=== PATIENT | female | born 1945 | race Caucasian/White ===

== ENCOUNTER 2018-04-24 00:07 | Inpatient (IN) | payer OTHER, MEDICAID ==
[~2018-04-24] VITALS: Ht 149.9 cm; Wt 76.8 kg
[2018-04-24 01:08] LABS: Basophils # (auto) 0.1 uL; Basophils % (auto) 0.7 % (0.0-2.0); Eosinophils # (auto) 0 uL; Eosinophils % (auto) 0.1 % (0.0-7.0); Hematocrit 40.4 % (36.0-46.0); Hemoglobin 12.4 g/dL (12.2-16.2); Lymphocytes # (auto) 2.5 uL; Lymphocytes % (auto) 18.2 % (10.0-50.0); Mean Corpuscular Hemoglobin 24.1 pg (28.0-32.0); Mean Corpuscular Hgb Conc. 30.7 g/dL (32.0-36.0); Mean Corpuscular Volume 78.5 fL (80.0-100.0); Monocytes # (auto) 0.8 uL; Neutrophils # (auto) 10.2 uL; Nucleated Red Blood Cells % 0.1 %; Platelet Count (auto) 410 10^3/uL (140-450); Red Blood Cells 5.14 10^6/uL (4.0-5.20); Red Cell Distribution Width 18.1 % (11.8-14.3); White Blood Cell 13.6 10^3/uL (4.4-10.8)
[2018-04-24 01:24] LABS: INR 1.02 (0.9-1.15); Partial Thromboplastin Time 26.1 sec (23.78-33.04); Prothrombin Time 10.9 sec (9.27-12.13)
[2018-04-24 01:25] LABS: Albumin 3.1 g/dL (3.4-5.0); Calcium 8.3 mg/dL (8.5-10.1); Potassium 4.4 mmol/L (3.5-5.1)
[2018-04-24 01:30] LABS: Bilirubin, Total 0.5 mg/dL (0.2-1.0); Total Protein 7.3 g/dL (6.4-8.2)
[2018-04-24] MEDS ORDERED: ONDANSETRON HCL 4 MG/2 ML VIAL ONE (03:52)
[2018-04-24 03:53] LABS: Urine Bacteria MOD /hpf (None Seen); Urine Blood Negative /uL (Negative); Urine Specific Gravity 1.032 (1.001-1.035); Urine WBC 37 /hpf (0 - 5)
[2018-04-24] MEDS ORDERED: ENOXAPARIN SOD 80 MG/0.8ML SYRINGE SC ONE (04:30)
[2018-04-24] MEDS ORDERED: FUROSEMIDE 20 MG/2 ML VIAL IV ONE (05:30)
[2018-04-24] MEDS ORDERED: cefTRIAXone 1GM/10ml IVPUSH 10 ML IV ONE ×2 (05:45→11:45)
[2018-04-24] MEDS ORDERED: ONDANSETRON HCL 4 MG/2 ML VIAL IV PRN (06:00)
[2018-04-24] MEDS ORDERED: HYDROcodone-ACET 5/325MG TAB PO PRN (06:00)
[2018-04-24] MEDS ORDERED: MORPHINE SULF INJ 2 MG/ML SYRINGE 1ML IV PRN (06:00)
[2018-04-24] MEDS ORDERED: ACETAMINOPHEN 325 MG TAB PO PRN (06:00)
[2018-04-24] MEDS ORDERED: TEMAZEPAM 15 MG CAP PO PRN (06:00)
[2018-04-24] MEDS ORDERED: NITROGLYCERIN 0.4 MG SL TAB SL PRN (06:00)
[2018-04-24] MEDS ORDERED: IOHEXOL 350 MG/ML 100ML IJ ONE (06:13)
[2018-04-24] MEDS ORDERED: LOPERAMIDE HCL 2 MG CAP PO PRN (06:45)
[2018-04-24] MEDS ORDERED: LEVOFLOXACIN 500MG 100 ML IV ONE (07:30)
[2018-04-24] MEDS ORDERED: LEVEMIR SC (08:24)
[2018-04-24] MEDS ORDERED: BIMA0.01 EACHEYE (08:24)
[2018-04-24] MEDS ORDERED: SITA100T7 PO (08:24)
[2018-04-24] MEDS ORDERED: METF-372 PO (08:24)
[2018-04-24] MEDS ORDERED: LOSA100T27 PO (08:24)
[2018-04-24] MEDS ORDERED: MELO1TAB73 PO (08:24)
[2018-04-24] MEDS ORDERED: CANA300T OR (08:24)
[2018-04-24] MEDS ORDERED: PEN400T PO (08:24)
[2018-04-24] MEDS ORDERED: TIMO0.5S49 EACHEYE (08:24)
[2018-04-24] MEDS ORDERED: ASPirin 81 mg TAB PO SCH (10:00)
[2018-04-24] MEDS ORDERED: FAMOTIDINE 20 MG TAB PO SCH (10:00)
[2018-04-24] MEDS: FUROSEMIDE 20 MG/2 ML VIAL IV SCH ×2 (10:40→17:52)
[2018-04-24] MEDS: FAMOTIDINE 20 MG TAB PO SCH (10:57)
[2018-04-24] MEDS ORDERED: DEXTROSE (50%) 50ML SYRG IV PRN (11:45)
[2018-04-24] MEDS: metroNIDAZOLE 500 MG TAB PO SCH ×2 (12:24→17:51)
[2018-04-24] MEDS: InsuLIN REG 1unit/0.01ml Soln (100units/ml) SC SCH ×2 (17:00→22:24)
[2018-04-24] MEDS: ACCU-CHEK COMFORT CURVE STRIP VI SCH ×2 (17:08→22:26)
[2018-04-24 17:34] VITALS: BP 155/64
[2018-04-24 21:30] VITALS: BP 138/70
[2018-04-24] MEDS: CARVEDILOL 3.125 MG TAB PO SCH (22:00)
[2018-04-24] MEDS: ATORVASTATIN 20 MG TAB PO SCH (22:20)
[2018-04-24] MEDS: ENOXAPARIN SOD 100 MG/1 ML SYRINGE SC SCH (22:25)
[2018-04-24] MEDS: INSULIN LANTUS (GLARGINE) 1 /0.01ml (100units/ml) SC SCH (22:26)
[2018-04-25 05:00] VITALS: BP 92/51
[2018-04-25] MEDS: metroNIDAZOLE 500 MG TAB PO SCH ×4 (06:34→18:35)
[2018-04-25] MEDS: InsuLIN REG 1unit/0.01ml Soln (100units/ml) SC SCH ×4 (06:41→21:54)
[2018-04-25] MEDS: FUROSEMIDE 20 MG/2 ML VIAL IV SCH ×2 (06:58→18:36)
[2018-04-25] MEDS: ACCU-CHEK COMFORT CURVE STRIP VI SCH ×4 (07:00→21:56)
[2018-04-25 07:28] LABS: Albumin 2.8 g/dL (3.4-5.0); BUN/Creatinine Ratio 22.7; Bilirubin, Total 0.4 mg/dL (0.2-1.0); Calcium 8.1 mg/dL (8.5-10.1); Magnesium 2.2 mg/dL (1.6-2.6); Potassium 3.7 mmol/L (3.5-5.1); Total Protein 6.5 g/dL (6.4-8.2)
[2018-04-25 07:41] LABS: Basophils # (auto) 0.1 uL; Eosinophils # (auto) 0.1 uL; Red Cell Distribution Width 17.9 % (11.8-14.3); White Blood Cell 12.6 10^3/uL (4.4-10.8)
[2018-04-25 07:43] LABS: Basophils % (auto) 0.7 % (0.0-2.0); Eosinophils % (auto) 0.5 % (0.0-7.0); Hematocrit 35.8 % (36.0-46.0); Lymphocytes # (auto) 3.8 uL; Lymphocytes % (auto) 29.9 % (10.0-50.0); Mean Corpuscular Hemoglobin 24.1 pg (28.0-32.0); Mean Corpuscular Hgb Conc. 30.9 g/dL (32.0-36.0); Mean Corpuscular Volume 78.1 fL (80.0-100.0); Monocytes % (auto) 7.9 % (0.0-12.0); Neutrophils # (auto) 7.7 uL; Nucleated Red Blood Cells % 0.2 %; Platelet Count (auto) 347 10^3/uL (140-450); Red Blood Cells 4.58 10^6/uL (4.0-5.20)
[2018-04-25 09:00] VITALS: BP 106/56
[2018-04-25] MEDS: cefTRIAXone 1GM/10ml IVPUSH 10 ML IV SCH (09:00)
[2018-04-25] MEDS: ENOXAPARIN SOD 100 MG/1 ML SYRINGE SC SCH ×2 (10:00→21:53)
[2018-04-25] MEDS ORDERED: LEVOFLOXACIN 500MG 100 ML IV SCH (10:00)
[2018-04-25] MEDS: ASPirin 81 mg TAB PO SCH (10:00)
[2018-04-25] MEDS: FAMOTIDINE 20 MG TAB PO SCH (10:26)
[2018-04-25] MEDS: CARVEDILOL 3.125 MG TAB PO SCH ×2 (10:27→21:53)
[2018-04-25 13:00] VITALS: BP 93/49
[2018-04-25 16:47] VITALS: BP 95/55
[2018-04-25] MEDS: ATORVASTATIN 20 MG TAB PO SCH ×2 (21:53→21:58)
[2018-04-25] MEDS: INSULIN LANTUS (GLARGINE) 1 /0.01ml (100units/ml) SC SCH (21:55)
[2018-04-25 22:00] VITALS: BP 112/64
[2018-04-26] MEDS: metroNIDAZOLE 500 MG TAB PO SCH ×2 (00:01→06:22)
[2018-04-26 05:00] VITALS: BP 105/56
[2018-04-26] MEDS: FUROSEMIDE 20 MG/2 ML VIAL IV SCH ×2 (06:23→18:20)
[2018-04-26] MEDS: InsuLIN REG 1unit/0.01ml Soln (100units/ml) SC SCH ×4 (06:43→21:56)
[2018-04-26] MEDS: ACCU-CHEK COMFORT CURVE STRIP VI SCH ×4 (06:44→21:56)
[2018-04-26 07:16] LABS: Basophils # (auto) 0.1 uL; Basophils % (auto) 0.9 % (0.0-2.0); Eosinophils # (auto) 0.1 uL; Lymphocytes # (auto) 3.9 uL; Monocytes # (auto) 0.9 uL
[2018-04-26 07:19] LABS: Eosinophils % (auto) 1.2 % (0.0-7.0); Hemoglobin 10.6 g/dL (12.2-16.2); Lymphocytes % (auto) 41.3 % (10.0-50.0); Mean Corpuscular Hemoglobin 24.9 pg (28.0-32.0); Mean Corpuscular Hgb Conc. 32.3 g/dL (32.0-36.0); Mean Corpuscular Volume 77.3 fL (80.0-100.0); Neutrophils # (auto) 4.4 uL; Neutrophils % (auto) 46.6 % (37.0-80.0); Platelet Count (auto) 309 10^3/uL (140-450); Red Blood Cells 4.27 10^6/uL (4.0-5.20); Red Cell Distribution Width 17.6 % (11.8-14.3); White Blood Cell 9.3 10^3/uL (4.4-10.8)
[2018-04-26 07:23] LABS: BUN/Creatinine Ratio 28.9; Calcium 8.3 mg/dL (8.5-10.1); Potassium 3.6 mmol/L (3.5-5.1)
[2018-04-26 09:00] VITALS: BP 110/59
[2018-04-26] MEDS: cefTRIAXone 1GM/10ml IVPUSH 10 ML IV SCH (09:00)
[2018-04-26] MEDS: ASPirin 81 mg TAB PO SCH (10:30)
[2018-04-26] MEDS: ENOXAPARIN SOD 100 MG/1 ML SYRINGE SC SCH (10:30)
[2018-04-26] MEDS: FAMOTIDINE 20 MG TAB PO SCH (10:30)
[2018-04-26] MEDS: CARVEDILOL 3.125 MG TAB PO SCH ×2 (10:31→21:55)
[2018-04-26 12:43] VITALS: BP 109/56
[2018-04-26] MEDS ORDERED: LIDOCAINE 2% (LOCAL ANESTH.) PF 5ml SDV ONE ×2 (14:20→14:22)
[2018-04-26 16:30] VITALS: BP 99/49
[2018-04-26] MEDS: ATORVASTATIN 20 MG TAB PO SCH (21:47)
[2018-04-26] MEDS: INSULIN LANTUS (GLARGINE) 1 /0.01ml (100units/ml) SC SCH (21:56)
[2018-04-26 22:00] VITALS: BP 106/58
[2018-04-27 05:00] VITALS: BP 125/72
[2018-04-27] MEDS ORDERED: DEXTROSE (50%) 50ML SYRG IV ONE (05:15)
[2018-04-27 05:41] LABS: Basophils # (auto) 0.1 uL; Basophils % (auto) 0.9 % (0.0-2.0); Eosinophils # (auto) 0.1 uL; Hemoglobin 11.8 g/dL (12.2-16.2); Lymphocytes # (auto) 3.7 uL; Mean Corpuscular Hemoglobin 24.8 pg (28.0-32.0); White Blood Cell 9.9 10^3/uL (4.4-10.8)
[2018-04-27 05:42] LABS: Eosinophils % (auto) 1.3 % (0.0-7.0); Hematocrit 37.2 % (36.0-46.0); Lymphocytes % (auto) 36.9 % (10.0-50.0); Mean Corpuscular Hgb Conc. 31.7 g/dL (32.0-36.0); Mean Corpuscular Volume 78.1 fL (80.0-100.0); Monocytes % (auto) 9.7 % (0.0-12.0); Neutrophils # (auto) 5.1 uL; Neutrophils % (auto) 51.2 % (37.0-80.0); Nucleated Red Blood Cells % 0.1 %; Platelet Count (auto) 359 10^3/uL (140-450); Red Blood Cells 4.76 10^6/uL (4.0-5.20); Red Cell Distribution Width 17.7 % (11.8-14.3)
[2018-04-27] MEDS: FUROSEMIDE 20 MG/2 ML VIAL IV SCH ×2 (05:49→18:12)
[2018-04-27 06:13] LABS: BUN/Creatinine Ratio 34.4; Calcium 8.6 mg/dL (8.5-10.1); Magnesium 2.5 mg/dL (1.6-2.6); Potassium 3.9 mmol/L (3.5-5.1)
[2018-04-27] MEDS: ACCU-CHEK COMFORT CURVE STRIP VI SCH ×4 (06:49→22:14)
[2018-04-27] MEDS: InsuLIN REG 1unit/0.01ml Soln (100units/ml) SC SCH ×4 (06:49→22:13)
[2018-04-27 09:10] VITALS: BP 125/65
[2018-04-27] MEDS: POTASSIUM CHL 20 Meq TABLET PO SCH (09:42)
[2018-04-27] MEDS: FAMOTIDINE 20 MG TAB PO SCH (09:42)
[2018-04-27] MEDS: cefTRIAXone 1GM/10ml IVPUSH 10 ML IV SCH (09:42)
[2018-04-27] MEDS: ASPirin 81 mg TAB PO SCH (09:42)
[2018-04-27] MEDS: CARVEDILOL 3.125 MG TAB PO SCH ×2 (09:43→22:00)
[2018-04-27] MEDS: ENOXAPARIN SOD 40 MG/0.4 ML SYRINGE SC SCH (10:00)
[2018-04-27] MEDS: LOSARTAN POTASSIUM 50 MG TAB PO SCH (10:00)
[2018-04-27] MEDS ORDERED: LIDOCAINE 2%HCL (LOCAL ANESTH.) INJ 10ml MDV ONE ×2 (11:58→23:13)
[2018-04-27] MEDS ORDERED: IODIXANOL 320MG/ML 100ML BTL IV ONE ×2 (11:58→23:13)
[2018-04-27] MEDS ORDERED: ANGIOMAX 250 MG VIAL IV ONE ×2 (12:35→23:11)
[2018-04-27] MEDS ORDERED: fentaNYL CITRATE 100 MCG/2 ML VL ONE ×2 (12:35→23:11)
[2018-04-27] MEDS ORDERED: SODIUM CHL 0.9% 0 ML ONE ×2 (12:35→23:12)
[2018-04-27] MEDS ORDERED: MIDAZOLAM HCL 1MG/1ML-2 ML VIAL ONE ×2 (12:35→23:11)
[2018-04-27 16:56] VITALS: BP 142/75
[2018-04-27] MEDS ORDERED: INSULIN LANTUS (GLARGINE) 1 /0.01ml (100units/ml) SC SCH (22:00)
[2018-04-27] MEDS: ATORVASTATIN 20 MG TAB PO SCH (22:10)
[2018-04-27] MEDS ORDERED: ENOXAPARIN SOD 100 MG/1 ML SYRINGE SC ONE (22:32)
[2018-04-27] MEDS ORDERED: ENOXAPARIN SOD 80 MG/0.8ML SYRINGE SC ONE (22:35)
[2018-04-27] MEDS ORDERED: MEPERIDINE HCL (25 MG/ML) 1ML VIAL IV ONE (23:15)
[2018-04-27] MEDS ORDERED: DIAZEPAM 5 MG TAB PO ONE (23:15)
[2018-04-27] MEDS ORDERED: DIAZEPAM 5 MG TAB ONE (23:16)
[2018-04-27] MEDS ORDERED: EPTIFIBATIDE INJ (2MG/ML) 10ML VIAL IV ONE (23:17)
[2018-04-27] MEDS ORDERED: EPTIFIBATIDE DRIP(0.75MG/ML) 100 ML IV ONE (23:17)
[2018-04-27] MEDS ORDERED: ONDANSETRON HCL 4 MG/2 ML VIAL ONE (23:57)
[2018-04-28] VITALS (69 sets, daily range): BP systolic 83–147; BP diastolic 38–78
[2018-04-28] MEDS: EPTIFIBATIDE DRIP(0.75MG/ML) 100 ML IV SCH ×2 (01:45→06:46)
[2018-04-28] MEDS: ACCU-CHEK COMFORT CURVE STRIP VI SCH ×6 (04:00→20:00)
[2018-04-28] MEDS: InsuLIN REG 1unit/0.01ml Soln (100units/ml) SC SCH ×6 (04:00→20:00)
[2018-04-28 04:11] LABS: Basophils # (auto) 0.1 uL; Eosinophils # (auto) 0 uL; Eosinophils % (auto) 0.1 % (0.0-7.0); Monocytes # (auto) 1.1 uL
[2018-04-28 04:14] LABS: Basophils % (auto) 0.8 % (0.0-2.0); Hematocrit 38.1 % (36.0-46.0); Hemoglobin 11.7 g/dL (12.2-16.2); Lymphocytes # (auto) 2.5 uL; Mean Corpuscular Hemoglobin 24.3 pg (28.0-32.0); Mean Corpuscular Hgb Conc. 30.7 g/dL (32.0-36.0); Mean Corpuscular Volume 78.9 fL (80.0-100.0); Monocytes % (auto) 7.9 % (0.0-12.0); Neutrophils % (auto) 73.2 % (37.0-80.0); Platelet Count (auto) 339 10^3/uL (140-450); Red Blood Cells 4.82 10^6/uL (4.0-5.20); White Blood Cell 13.6 10^3/uL (4.4-10.8)
[2018-04-28 04:18] LABS: Albumin 2.9 g/dL (3.4-5.0); BUN/Creatinine Ratio 29.3; Calcium 8.2 mg/dL (8.5-10.1); Potassium 3.5 mmol/L (3.5-5.1)
[2018-04-28 04:21] LABS: Bilirubin, Total 0.4 mg/dL (0.2-1.0); Total Protein 6.9 g/dL (6.4-8.2)
[2018-04-28 04:34] LABS: INR 1.06 (0.9-1.15); Partial Thromboplastin Time 27.5 sec (23.78-33.04); Prothrombin Time 11.3 sec (9.27-12.13)
[2018-04-28] MEDS: FUROSEMIDE 20 MG/2 ML VIAL IV SCH ×2 (06:46→17:50)
[2018-04-28] MEDS ORDERED: MILRINONE 4 MG in SODIUM CHL 0.9% 50 ML IV ONE (08:45)
[2018-04-28] MEDS: MILRINONE 20MG/100ML 100 ML IV SCH ×2 (09:49→20:20)
[2018-04-28] MEDS: LOSARTAN POTASSIUM 50 MG TAB PO SCH (10:00)
[2018-04-28] MEDS: ENOXAPARIN SOD 40 MG/0.4 ML SYRINGE SC SCH (10:00)
[2018-04-28] MEDS: cefTRIAXone 1GM/10ml IVPUSH 10 ML IV SCH (10:02)
[2018-04-28] MEDS: FAMOTIDINE 20 MG TAB PO SCH (10:02)
[2018-04-28] MEDS: CARVEDILOL 3.125 MG TAB PO SCH ×2 (10:03→22:00)
[2018-04-28] MEDS: ASPirin 81 mg TAB PO SCH (10:03)
[2018-04-28] MEDS: POTASSIUM CHL 20 Meq TABLET PO SCH (10:04)
[2018-04-28] MEDS ORDERED: HYDROcodone-ACET 5/325MG TAB PO PRN (10:15)
[2018-04-28] MEDS ORDERED: DEXTROSE (50%) 50ML SYRG IV PRN ×2 (10:30)
[2018-04-28] MEDS ORDERED: CLOPIDOGREL 300 MG TAB PO ONE (14:00)
[2018-04-28] MEDS ORDERED: SIMETHICONE 80 MG CHEWABLE TABLET PO ONE (21:45)
[2018-04-28] MEDS: ATORVASTATIN 20 MG TAB PO SCH (22:25)
[2018-04-28] MEDS: INSULIN LANTUS (GLARGINE) 1 /0.01ml (100units/ml) SC SCH (22:26)
[2018-04-29] VITALS: BP 139/72
[2018-04-29] MEDS: ACCU-CHEK COMFORT CURVE STRIP VI SCH ×7 (00:19→23:48)
[2018-04-29] MEDS: InsuLIN REG 1unit/0.01ml Soln (100units/ml) SC SCH ×7 (00:19→23:48)
[2018-04-29 04:00] VITALS: BP 122/71
[2018-04-29 05:00] LABS: Basophils # (auto) 0.1 uL; Eosinophils # (auto) 0.1 uL; Eosinophils % (auto) 0.5 % (0.0-7.0); Hemoglobin 10.7 g/dL (12.2-16.2); Lymphocytes # (auto) 2.5 uL; Mean Corpuscular Hemoglobin 24.6 pg (28.0-32.0); Mean Corpuscular Hgb Conc. 31.4 g/dL (32.0-36.0); Monocytes # (auto) 0.9 uL; Monocytes % (auto) 7.1 % (0.0-12.0); Red Blood Cells 4.34 10^6/uL (4.0-5.20); Red Cell Distribution Width 17.6 % (11.8-14.3); White Blood Cell 12.5 10^3/uL (4.4-10.8)
[2018-04-29 05:02] LABS: Mean Corpuscular Volume 78.4 fL (80.0-100.0); Neutrophils # (auto) 8.9 uL; Neutrophils % (auto) 71.4 % (37.0-80.0); Platelet Count (auto) 304 10^3/uL (140-450)
[2018-04-29 05:16] LABS: BUN/Creatinine Ratio 30.3; Calcium 8.1 mg/dL (8.5-10.1); Potassium 3.8 mmol/L (3.5-5.1)
[2018-04-29] MEDS: FUROSEMIDE 20 MG/2 ML VIAL IV SCH ×2 (06:00→17:22)
[2018-04-29] MEDS: FAMOTIDINE 20 MG TAB PO SCH (06:42)
[2018-04-29] MEDS: cefTRIAXone 1GM/10ml IVPUSH 10 ML IV SCH (09:00)
[2018-04-29] MEDS ORDERED: LACTULOSE 20Gm/30ML SOLN PO PRN ×2 (09:00→10:30)
[2018-04-29] MEDS ORDERED: DOCUSATE SOD 100 MG CAP PO PRN ×2 (09:00→10:30)
[2018-04-29] MEDS: CLOPIDOGREL BISULFATE 75 MG TAB PO SCH (10:00)
[2018-04-29] MEDS: ASPirin 81 mg TAB PO SCH (10:00)
[2018-04-29] MEDS: ENOXAPARIN SOD 40 MG/0.4 ML SYRINGE SC SCH (10:00)
[2018-04-29] MEDS: CARVEDILOL 3.125 MG TAB PO SCH ×2 (10:00→21:50)
[2018-04-29] MEDS: LOSARTAN POTASSIUM 50 MG TAB PO SCH (10:00)
[2018-04-29] MEDS: POTASSIUM CHL 20 Meq TABLET PO SCH (10:00)
[2018-04-29 13:00] VITALS: BP 106/66
[2018-04-29] MEDS ORDERED: LORazepam 0.5 MG TAB PO PRN (16:15)
[2018-04-29] MEDS: LACTULOSE 20Gm/30ML SOLN PO PRN (16:36)
[2018-04-29 17:00] VITALS: BP 103/59
[2018-04-29] MEDS: ATORVASTATIN 20 MG TAB PO SCH (21:50)
[2018-04-29] MEDS: INSULIN LANTUS (GLARGINE) 1 /0.01ml (100units/ml) SC SCH (21:51)
[2018-04-29] MEDS ORDERED: DOCUSATE SOD 100 MG CAP PO SCH (22:00)
[2018-04-29 22:02] VITALS: BP 140/59
[2018-04-29] MEDS ORDERED: AMMONIA 0.33 ML INHALANT IN ONE (23:13)
[2018-04-30] MEDS: ACCU-CHEK COMFORT CURVE STRIP VI SCH ×2 (04:00→08:00)
[2018-04-30] MEDS: InsuLIN REG 1unit/0.01ml Soln (100units/ml) SC SCH ×2 (04:00→08:00)
[2018-04-30 05:25] VITALS: BP 112/57
[2018-04-30] MEDS: FUROSEMIDE 20 MG/2 ML VIAL IV SCH (05:58)
[2018-04-30 06:34] LABS: Basophils # (auto) 0.1 uL; Eosinophils # (auto) 0.1 uL; Eosinophils % (auto) 0.9 % (0.0-7.0); Hemoglobin 11.1 g/dL (12.2-16.2); Monocytes # (auto) 0.8 uL; Neutrophils # (auto) 5.7 uL
[2018-04-30 06:37] LABS: Basophils % (auto) 1.2 % (0.0-2.0); Hematocrit 35.1 % (36.0-46.0); Lymphocytes # (auto) 2.3 uL; Lymphocytes % (auto) 25.8 % (10.0-50.0); Mean Corpuscular Hgb Conc. 31.6 g/dL (32.0-36.0); Mean Corpuscular Volume 79.2 fL (80.0-100.0); Monocytes % (auto) 8.5 % (0.0-12.0); Neutrophils % (auto) 63.6 % (37.0-80.0); Nucleated Red Blood Cells % 0.1 %; Platelet Count (auto) 268 10^3/uL (140-450); Red Blood Cells 4.44 10^6/uL (4.0-5.20); Red Cell Distribution Width 18.1 % (11.8-14.3); White Blood Cell 8.9 10^3/uL (4.4-10.8)
[2018-04-30 06:54] LABS: BUN/Creatinine Ratio 27.9; Calcium 8.3 mg/dL (8.5-10.1); Magnesium 2.5 mg/dL (1.6-2.6); Potassium 3.8 mmol/L (3.5-5.1)
[2018-04-30] MEDS: LACTULOSE 20Gm/30ML SOLN PO PRN (08:46)
[2018-04-30] MEDS: cefTRIAXone 1GM/10ml IVPUSH 10 ML IV SCH (08:46)
[2018-04-30 09:00] VITALS: BP 101/52
[2018-04-30] MEDS: CLOPIDOGREL BISULFATE 75 MG TAB PO SCH (10:55)
[2018-04-30] MEDS: ENOXAPARIN SOD 40 MG/0.4 ML SYRINGE SC SCH (10:55)
[2018-04-30] MEDS: FAMOTIDINE 20 MG TAB PO SCH (10:55)
[2018-04-30] MEDS: POTASSIUM CHL 20 Meq TABLET PO SCH (10:56)
[2018-04-30] MEDS: ASPirin 81 mg TAB PO SCH (10:56)
[2018-04-30] MEDS: CARVEDILOL 3.125 MG TAB PO SCH (10:59)
[2018-04-30] MEDS: LOSARTAN POTASSIUM 50 MG TAB PO SCH (11:00)
[2018-04-30] MEDS ORDERED: ATOR20TA50 PO (11:42)
[2018-04-30] MEDS ORDERED: ASPI81CH43 PO (11:42)
[2018-04-30] MEDS ORDERED: CLOP75TA28 PO (11:42)
[2018-04-30] MEDS ORDERED: FURO40TA PO (11:42)
[2018-04-30] MEDS ORDERED: POTA20TA53 PO (11:42)
[2018-04-30] MEDS ORDERED: NITR-48 PO (11:42)
[2018-04-30] MEDS ORDERED: CAR3125T PO (11:42)
[2018-04-30] MEDS ORDERED: PANT40TA2 PO (11:42)
[2018-04-30] MEDS ORDERED: LOSA50TA6 PO (11:42)
[2018-04-30] MEDS ORDERED: DOCU-94 PO (11:47)
[2018-04-30 13:21] VITALS: BP 101/52
== END 2018-04-30 14:00 | disposition home health service (06) | DRG 270 ==
LOC: ER 00:07 → TELE 00:08 → TELE-WESTW 07:38 → ICU WEST 04-28 02:02 → DOU IN ICU 04-28 07:47 → CENTRAL 04-29 11:47 → TELE-CENTR 04-29 11:48
PROVIDERS: ADMIT Nurse Practitioner; ATTEND Internal Medicine
PROC: 0W993ZZ Drainage of Right Pleural Cavity, Percutaneous Approach (ICD-10-PCS; 2018-04-25)
PROC: 4A023N8 Measurement of Cardiac Sampling and Pressure, Bilateral, Percutaneous Approach (ICD-10-PCS; principal; 2018-04-27)
PROC: B2111ZZ Fluoroscopy of Multiple Coronary Arteries using Low Osmolar Contrast (ICD-10-PCS; 2018-04-27)
PROC: B2151ZZ Fluoroscopy of Left Heart using Low Osmolar Contrast (ICD-10-PCS; 2018-04-27)
PROC: 04CM3ZZ Extirpation of Matter from Right Popliteal Artery, Percutaneous Approach (ICD-10-PCS; 2018-04-28)
PROC: 047M3Z1 Dilation of Right Popliteal Artery using Drug-Coated Balloon, Percutaneous Approach (ICD-10-PCS; 2018-04-28)
PROC: 047K3Z1 Dilation of Right Femoral Artery using Drug-Coated Balloon, Percutaneous Approach (ICD-10-PCS; 2018-04-28)
PROC: 04CK3ZZ Extirpation of Matter from Right Femoral Artery, Percutaneous Approach (ICD-10-PCS; 2018-04-28)
PROC: B41F1ZZ Fluoroscopy of Right Lower Extremity Arteries using Low Osmolar Contrast (ICD-10-PCS; 2018-04-28)
DX: I21.4 Non-ST elevation (NSTEMI) myocardial infarction (principal); J96.00 Acute respiratory failure, unspecified whether with hypoxia or hypercapnia; I50.43 Acute on chronic combined systolic (congestive) and diastolic (congestive) heart failure; N39.0 Urinary tract infection, site not specified; I42.9 Cardiomyopathy, unspecified; I70.92 Chronic total occlusion of artery of the extremities; J98.11 Atelectasis; I74.3 Embolism and thrombosis of arteries of the lower extremities; I25.10 Atherosclerotic heart disease of native coronary artery without angina pectoris; E66.9 Obesity, unspecified; I11.0 Hypertensive heart disease with heart failure; R19.7 Diarrhea, unspecified; B96.20 Unspecified Escherichia coli [E. coli] as the cause of diseases classified elsewhere; E11.51 Type 2 diabetes mellitus with diabetic peripheral angiopathy without gangrene; E11.65 Type 2 diabetes mellitus with hyperglycemia; I70.201 Unspecified atherosclerosis of native arteries of extremities, right leg; K21.9 Gastro-esophageal reflux disease without esophagitis; K59.00 Constipation, unspecified; R79.1 Abnormal coagulation profile; Z82.49 Family history of ischemic heart disease and other diseases of the circulatory system; Z87.11 Personal history of peptic ulcer disease; Z83.3 Family history of diabetes mellitus; Z68.34 Body mass index [BMI] 34.0-34.9, adult; Z88.1 Allergy status to other antibiotic agents; Z88.0 Allergy status to penicillin
CPT/HCPCS: 10022; 36415; 37225; 71045; 71046; 71275; 76604; 76942; 80048; 80053; 80061; 81001; 82962; 83036; 83735; 83880; 83986; 84443; 84484; 85025; 85379; 85610; 85730; 86850; 86900; 86901; 87070; 87081; 87086; 87088; 87186; 87205; 87493; 89051; 93005; 93306; 93460; 93926; 93970; 94761; 96372; 96374; 96375; 97163; 99152; A6257; C1769; C2623; J0696; J1815; J1956; J2001; J2250; J2405; Q9967

== ENCOUNTER 2018-05-04 13:47 | Emergency (ER) | payer OTHER, MEDICAID ==
[~2018-05-04] VITALS: Ht 152.4 cm; Wt 75.3 kg
[~2018-05-04 13:47] MED LIST: ASPI81CH43 PO; ATOR20TA50 PO; BIMA0.01 EACHEYE; CANA300T OR; CAR3125T PO; CLOP75TA28 PO; DOCU-94 PO; FURO40TA PO; LEVEMIR SC; LOSA50TA6 PO; MELO1TAB73 PO; NITR-48 PO; PANT40TA2 PO; POTA20TA53 PO; SITA100T7 PO; TIMO0.5S49 EACHEYE
[2018-05-04 14:44] LABS: Basophils # (auto) 0.1 uL; Eosinophils # (auto) 0.1 uL; Hemoglobin 11.5 g/dL (12.2-16.2); Nucleated Red Blood Cells % 0.1 %; Red Blood Cells 4.59 10^6/uL (4.0-5.20)
[2018-05-04 14:46] LABS: Basophils % (auto) 1.2 % (0.0-2.0); Eosinophils % (auto) 1.4 % (0.0-7.0); Hematocrit 36.2 % (36.0-46.0); Lymphocytes # (auto) 1.6 uL; Lymphocytes % (auto) 15.7 % (10.0-50.0); Mean Corpuscular Hgb Conc. 31.7 g/dL (32.0-36.0); Mean Corpuscular Volume 78.8 fL (80.0-100.0); Monocytes # (auto) 0.6 uL; Monocytes % (auto) 6.1 % (0.0-12.0); Neutrophils # (auto) 7.5 uL; Neutrophils % (auto) 75.6 % (37.0-80.0); Platelet Count (auto) 304 10^3/uL (140-450); Red Cell Distribution Width 18.2 % (11.8-14.3)
[2018-05-04 15:02] LABS: INR 0.98 (0.9-1.15); Partial Thromboplastin Time 23.8 sec (23.78-33.04); Prothrombin Time 10.5 sec (9.27-12.13)
[2018-05-04 15:07] LABS: Albumin 3.3 g/dL (3.4-5.0); BUN/Creatinine Ratio 25.8; Bilirubin, Total 0.5 mg/dL (0.2-1.0); Calcium 8.7 mg/dL (8.5-10.1); Magnesium 2.8 mg/dL (1.6-2.6); Potassium 4.2 mmol/L (3.5-5.1); Total Protein 7.7 g/dL (6.4-8.2)
[2018-05-04] MEDS ORDERED: FUROSEMIDE 40 MG/4 ML VIAL IV ONE (17:15)
[2018-05-04] MEDS ORDERED: HEPARIN SODIUM (PORCINE) 5000 UNITS/ML 1ML VIAL IV ONE ×2 (17:45→18:30)
[2018-05-04] MEDS ORDERED: HEPARIN DRIP/D5W 100UNITS/ML 250 ML IV SCH (18:30)
[2018-05-04] MEDS ORDERED: diphenhdrAMINE HCL 50 MG/1 ML VL IV ONE ×2 (19:15→19:30)
[2018-05-04] MEDS ORDERED: FLUCONAZOLE 100 MG TAB PO ONE (19:30)
[2018-05-04] MEDS ORDERED: methylPREDNISolone SOD SUCC 125 MG/2 ML VL IV ONE (19:30)
[2018-05-04 19:42] VITALS: BP 137/83
== END 2018-05-04 20:29 | disposition short-term general hospital (02) ==
LOC: EDBD 13:47 → ER 13:47
DX: I77.89 Other specified disorders of arteries and arterioles (principal); I87.8 Other specified disorders of veins; D50.9 Iron deficiency anemia, unspecified; E11.21 Type 2 diabetes mellitus with diabetic nephropathy; K21.9 Gastro-esophageal reflux disease without esophagitis; I11.0 Hypertensive heart disease with heart failure; I50.9 Heart failure, unspecified; E46 Unspecified protein-calorie malnutrition; Z88.0 Allergy status to penicillin; Z79.82 Long term (current) use of aspirin; Z79.899 Other long term (current) drug therapy; Z68.32 Body mass index [BMI] 32.0-32.9, adult
CPT/HCPCS: 36415; 71046; 80053; 83735; 85025; 85379; 85610; 85730; 93005; 93926; 96374; 96375; 96376; 99285; J1200; J1644; J1940; J2930

== ENCOUNTER 2018-05-14 22:58 | Inpatient (IN) | payer OTHER, MEDICAID ==
[~2018-05-14] VITALS: Ht 157.5 cm; Wt 77.7 kg
[2018-05-15 01:11] LABS: Basophils # (auto) 0.2 uL; Basophils % (auto) 1.7 % (0.0-2.0); Eosinophils # (auto) 0.2 uL; Eosinophils % (auto) 1.9 % (0.0-7.0); Hematocrit 31.5 % (36.0-46.0); Hemoglobin 9.7 g/dL (12.2-16.2); Lymphocytes # (auto) 3.1 uL; Lymphocytes % (auto) 24.9 % (10.0-50.0); Mean Corpuscular Hemoglobin 23.9 pg (28.0-32.0); Mean Corpuscular Hgb Conc. 30.8 g/dL (32.0-36.0); Mean Corpuscular Volume 77.5 fL (80.0-100.0); Monocytes # (auto) 0.9 uL; Monocytes % (auto) 6.9 % (0.0-12.0); Neutrophils # (auto) 8.1 uL; Neutrophils % (auto) 64.6 % (37.0-80.0); Nucleated Red Blood Cells % 0.1 %; Platelet Count (auto) 372 10^3/uL (140-450); Red Blood Cells 4.06 10^6/uL (4.0-5.20); Red Cell Distribution Width 18.3 % (11.8-14.3); White Blood Cell 12.5 10^3/uL (4.4-10.8)
[2018-05-15 01:26] LABS: Albumin 2.6 g/dL (3.4-5.0); BUN/Creatinine Ratio 27.2; Calcium 7.8 mg/dL (8.5-10.1)
[2018-05-15 01:27] LABS: INR 0.94 (0.9-1.15); Partial Thromboplastin Time 23.2 sec (23.78-33.04); Prothrombin Time 10.1 sec (9.27-12.13)
[2018-05-15 01:31] LABS: Bilirubin, Total 0.4 mg/dL (0.2-1.0); Total Protein 6.5 g/dL (6.4-8.2)
[2018-05-15] MEDS ORDERED: IOHEXOL 350 MG/ML 100ML IJ ONE (03:18)
[2018-05-15 03:24] LABS: Urine Bacteria FEW /hpf (None Seen); Urine Blood 1+ /uL (Negative); Urine Specific Gravity 1.018 (1.001-1.035); Urine WBC 59 /hpf (0 - 5); Urine WBC Clumps PRESENT /hpf (None Seen)
[2018-05-15] MEDS ORDERED: methylPREDNISolone SOD SUCC 125 MG/2 ML VL IV ONE (03:30)
[2018-05-15] MEDS ORDERED: cefTRIAXone 1GM/10ml IVPUSH 10 ML IV ONE (06:00)
[2018-05-15] MEDS ORDERED: ONDANSETRON HCL 4 MG/2 ML VIAL IV PRN (07:00)
[2018-05-15] MEDS ORDERED: DOCUSATE SOD 100 MG CAP PO PRN (07:00)
[2018-05-15] MEDS ORDERED: DEXTROSE (50%) 50ML SYRG IV PRN (07:00)
[2018-05-15] MEDS ORDERED: MORPHINE SULF INJ 2 MG/ML SYRINGE 1ML IV PRN (07:00)
[2018-05-15] MEDS ORDERED: TEMAZEPAM 15 MG CAP PO PRN (07:00)
[2018-05-15] MEDS: CARVEDILOL 3.125 MG TAB PO SCH ×2 (09:28→10:45)
[2018-05-15] MEDS: POTASSIUM CHL 10 Meq TABLET PO SCH (09:28)
[2018-05-15] MEDS: ASPirin 81 mg TAB PO SCH (09:28)
[2018-05-15] MEDS: FUROSEMIDE 40 MG TAB PO SCH (09:29)
[2018-05-15] MEDS: ENOXAPARIN SOD 40 MG/0.4 ML SYRINGE SC SCH (09:29)
[2018-05-15] MEDS: CLOPIDOGREL BISULFATE 75 MG TAB PO SCH (09:29)
[2018-05-15] MEDS: PANTOPRAZOLE 40 MG TAB PO SCH (09:29)
[2018-05-15] MEDS: LOSARTAN POTASSIUM 50 MG TAB PO SCH (09:30)
[2018-05-15] MEDS: ACCU-CHEK COMFORT CURVE STRIP VI SCH ×2 (12:30→18:38)
[2018-05-15] MEDS: InsuLIN REG 1unit/0.01ml Soln (100units/ml) SC SCH ×2 (12:33→18:38)
[2018-05-15] MEDS ORDERED: CLINDAMYCIN 600MG IV 50 ML IV SCH (14:00)
[2018-05-15] MEDS: ATORVASTATIN 20 MG TAB PO SCH (22:14)
[2018-05-15 22:19] VITALS: BP 105/58
[2018-05-16] MEDS: InsuLIN REG 1unit/0.01ml Soln (100units/ml) SC SCH ×4 (00:28→17:23)
[2018-05-16] MEDS: ACCU-CHEK COMFORT CURVE STRIP VI SCH ×4 (00:29→17:23)
[2018-05-16] MEDS ORDERED: LORazepam 0.5 MG TAB PO ONE (02:15)
[2018-05-16] MEDS ORDERED: LORazepam 0.5 MG TAB PO PRN (04:00)
[2018-05-16 04:50] VITALS: BP 113/66
[2018-05-16 07:50] LABS: Eosinophils # (auto) 0.2 uL; Eosinophils % (auto) 1.4 % (0.0-7.0); Hemoglobin 10.2 g/dL (12.2-16.2); Lymphocytes # (auto) 2.6 uL; Mean Corpuscular Volume 78.7 fL (80.0-100.0); Monocytes # (auto) 0.9 uL
[2018-05-16 07:52] LABS: Basophils # (auto) 0.2 uL; Basophils % (auto) 1.8 % (0.0-2.0); Lymphocytes % (auto) 22.1 % (10.0-50.0); Mean Corpuscular Hemoglobin 24.3 pg (28.0-32.0); Mean Corpuscular Hgb Conc. 30.9 g/dL (32.0-36.0); Monocytes % (auto) 7.7 % (0.0-12.0); Neutrophils # (auto) 7.8 uL; Nucleated Red Blood Cells % 0.1 %; Platelet Count (auto) 421 10^3/uL (140-450); Red Cell Distribution Width 18.3 % (11.8-14.3); White Blood Cell 11.7 10^3/uL (4.4-10.8)
[2018-05-16 08:13] LABS: Albumin 2.8 g/dL (3.4-5.0); BUN/Creatinine Ratio 27.3; Bilirubin, Total 0.4 mg/dL (0.2-1.0); Calcium 8.3 mg/dL (8.5-10.1); Potassium 3.9 mmol/L (3.5-5.1); Total Protein 7.1 g/dL (6.4-8.2)
[2018-05-16 09:00] VITALS: BP 120/72
[2018-05-16] MEDS ORDERED: cefTRIAXone 1GM/10ml IVPUSH 10 ML IV SCH (09:00)
[2018-05-16] MEDS: LOSARTAN POTASSIUM 50 MG TAB PO SCH (10:00)
[2018-05-16] MEDS: PANTOPRAZOLE 40 MG TAB PO SCH (10:10)
[2018-05-16] MEDS: POTASSIUM CHL 10 Meq TABLET PO SCH (10:10)
[2018-05-16] MEDS: CLOPIDOGREL BISULFATE 75 MG TAB PO SCH (10:11)
[2018-05-16] MEDS: ENOXAPARIN SOD 40 MG/0.4 ML SYRINGE SC SCH (10:11)
[2018-05-16] MEDS: CARVEDILOL 3.125 MG TAB PO SCH ×2 (10:11→21:33)
[2018-05-16] MEDS: FUROSEMIDE 40 MG TAB PO SCH (10:11)
[2018-05-16] MEDS: ASPirin 81 mg TAB PO SCH (10:11)
[2018-05-16] MEDS ORDERED: BISACODYL 10 MG RECT SUPP PR PRN (10:30)
[2018-05-16] MEDS: ERTAPENEM SOD INJ 1 GM in SODIUM CHL 0.9% 50 ML IV SCH (12:36)
[2018-05-16 13:00] VITALS: BP 115/58
[2018-05-16 17:00] VITALS: BP 115/69
[2018-05-16] MEDS: ATORVASTATIN 20 MG TAB PO SCH (21:34)
[2018-05-16] MEDS: RANOLAZINE ER 500 MG TAB PO SCH (21:37)
[2018-05-16 22:22] VITALS: BP 139/57
[2018-05-17] MEDS: ACCU-CHEK COMFORT CURVE STRIP VI SCH ×4 (00:19→18:41)
[2018-05-17] MEDS: InsuLIN REG 1unit/0.01ml Soln (100units/ml) SC SCH ×4 (00:19→18:42)
[2018-05-17 06:12] VITALS: BP 107/59
[2018-05-17 07:51] LABS: Eosinophils # (auto) 0.3 uL
[2018-05-17 07:53] LABS: Basophils # (auto) 0.2 uL; Basophils % (auto) 1.7 % (0.0-2.0); Eosinophils % (auto) 3.1 % (0.0-7.0); Hematocrit 30.3 % (36.0-46.0); Hemoglobin 9.5 g/dL (12.2-16.2); Lymphocytes # (auto) 2.5 uL; Lymphocytes % (auto) 22.6 % (10.0-50.0); Mean Corpuscular Hemoglobin 24.5 pg (28.0-32.0); Mean Corpuscular Hgb Conc. 31.5 g/dL (32.0-36.0); Mean Corpuscular Volume 77.7 fL (80.0-100.0); Monocytes # (auto) 0.7 uL; Monocytes % (auto) 6.6 % (0.0-12.0); Neutrophils # (auto) 7.4 uL; Nucleated Red Blood Cells % 0.2 %; Platelet Count (auto) 357 10^3/uL (140-450); Red Blood Cells 3.89 10^6/uL (4.0-5.20); Red Cell Distribution Width 18.5 % (11.8-14.3); White Blood Cell 11.2 10^3/uL (4.4-10.8)
[2018-05-17 08:14] LABS: BUN/Creatinine Ratio 32.9; Calcium 8.1 mg/dL (8.5-10.1); Potassium 3.7 mmol/L (3.5-5.1)
[2018-05-17 09:00] VITALS: BP 124/65
[2018-05-17] MEDS ORDERED: FLEET ENEMA(ADULT) 135 ML PR ONE (10:00)
[2018-05-17] MEDS: CLOPIDOGREL BISULFATE 75 MG TAB PO SCH (10:10)
[2018-05-17] MEDS: PANTOPRAZOLE 40 MG TAB PO SCH (10:10)
[2018-05-17] MEDS: POTASSIUM CHL 10 Meq TABLET PO SCH (10:10)
[2018-05-17] MEDS: ASPirin 81 mg TAB PO SCH (10:10)
[2018-05-17] MEDS: FUROSEMIDE 40 MG TAB PO SCH (10:11)
[2018-05-17] MEDS: CARVEDILOL 3.125 MG TAB PO SCH ×2 (10:11→22:00)
[2018-05-17] MEDS: ENOXAPARIN SOD 40 MG/0.4 ML SYRINGE SC SCH (10:12)
[2018-05-17] MEDS: ERTAPENEM SOD INJ 1 GM in SODIUM CHL 0.9% 50 ML IV SCH (10:38)
[2018-05-17] MEDS: RANOLAZINE ER 500 MG TAB PO SCH ×2 (10:38→22:08)
[2018-05-17 13:00] VITALS: BP 120/70
[2018-05-17 17:00] VITALS: BP_SYST 106; BP_SYST 113; BP_DIAS 41; BP_DIAS 70
[2018-05-17 22:00] VITALS: BP 113/57
[2018-05-17] MEDS ORDERED: SENNA 8.6 MG TAB PO SCH (22:00)
[2018-05-17] MEDS: ATORVASTATIN 20 MG TAB PO SCH (22:07)
[2018-05-18] MEDS: ACCU-CHEK COMFORT CURVE STRIP VI SCH ×4 (00:41→18:17)
[2018-05-18 05:15] VITALS: BP 113/65
[2018-05-18 06:24] LABS: Eosinophils # (auto) 0.3 uL; Hemoglobin 10.1 g/dL (12.2-16.2); Neutrophils # (auto) 6.2 uL; Nucleated Red Blood Cells % 0.2 %
[2018-05-18 06:34] LABS: Basophils # (auto) 0.2 uL; Basophils % (auto) 1.6 % (0.0-2.0); Eosinophils % (auto) 3.3 % (0.0-7.0); Hematocrit 32.5 % (36.0-46.0); Lymphocytes # (auto) 2.7 uL; Lymphocytes % (auto) 27.4 % (10.0-50.0); Mean Corpuscular Hemoglobin 24.5 pg (28.0-32.0); Mean Corpuscular Hgb Conc. 31.2 g/dL (32.0-36.0); Mean Corpuscular Volume 78.5 fL (80.0-100.0); Monocytes # (auto) 0.6 uL; Neutrophils % (auto) 61.7 % (37.0-80.0); Platelet Count (auto) 355 10^3/uL (140-450); Red Blood Cells 4.14 10^6/uL (4.0-5.20); Red Cell Distribution Width 18.2 % (11.8-14.3)
[2018-05-18 06:41] LABS: Anion Gap 12 (5-15); BUN/Creatinine Ratio 29.2; Blood Urea Nitrogen 21 mg/dL (7-18); Calcium 8.5 mg/dL (8.5-10.1); Carbon Dioxide 27 mmol/L (21-32); Chloride 98 mmol/L (98-107); GFR African American 103 mL/min; GFR Non-African American 85 mL/min; Glucose 173 mg/dL (74-106); Potassium 3.8 mmol/L (3.5-5.1); Sodium 137 mmol/L (136-145)
[2018-05-18] MEDS: InsuLIN REG 1unit/0.01ml Soln (100units/ml) SC SCH ×4 (06:41→18:16)
[2018-05-18 08:24] VITALS: BP 117/62
[2018-05-18] MEDS: POTASSIUM CHL 10 Meq TABLET PO SCH (10:23)
[2018-05-18] MEDS: ASPirin 81 mg TAB PO SCH (10:23)
[2018-05-18] MEDS: FUROSEMIDE 40 MG TAB PO SCH (10:23)
[2018-05-18] MEDS: PANTOPRAZOLE 40 MG TAB PO SCH (10:23)
[2018-05-18] MEDS: CARVEDILOL 3.125 MG TAB PO SCH (10:23)
[2018-05-18] MEDS: CLOPIDOGREL BISULFATE 75 MG TAB PO SCH (10:23)
[2018-05-18] MEDS: ENOXAPARIN SOD 40 MG/0.4 ML SYRINGE SC SCH (10:24)
[2018-05-18] MEDS: RANOLAZINE ER 500 MG TAB PO SCH (10:29)
[2018-05-18] MEDS: ERTAPENEM SOD INJ 1 GM in SODIUM CHL 0.9% 50 ML IV SCH (10:29)
[2018-05-18 13:00] VITALS: BP 93/50
[2018-05-18 16:00] VITALS: BP 91/49
== END 2018-05-18 18:45 | DRG 871 ==
LOC: ER 22:58 → EDBD 22:58 → OVERFLOW 22:59 → CENTRAL 05-15 20:49
PROVIDERS: ADMIT Nurse Practitioner; ATTEND Internal Medicine Pulmonary Disease
DX: A41.9 Sepsis, unspecified organism (principal); I50.43 Acute on chronic combined systolic (congestive) and diastolic (congestive) heart failure; N39.0 Urinary tract infection, site not specified; E44.0 Moderate protein-calorie malnutrition; I11.0 Hypertensive heart disease with heart failure; E78.5 Hyperlipidemia, unspecified; E66.9 Obesity, unspecified; I25.10 Atherosclerotic heart disease of native coronary artery without angina pectoris; K21.9 Gastro-esophageal reflux disease without esophagitis; I70.202 Unspecified atherosclerosis of native arteries of extremities, left leg; E11.51 Type 2 diabetes mellitus with diabetic peripheral angiopathy without gangrene; K59.00 Constipation, unspecified; Z16.12 Extended spectrum beta lactamase (ESBL) resistance; Z82.49 Family history of ischemic heart disease and other diseases of the circulatory system; Z83.3 Family history of diabetes mellitus; Z86.718 Personal history of other venous thrombosis and embolism; Z87.891 Personal history of nicotine dependence; Z68.31 Body mass index [BMI] 31.0-31.9, adult; Z88.0 Allergy status to penicillin; Z88.8 Allergy status to other drugs, medicaments and biological substances; Z88.1 Allergy status to other antibiotic agents; Z91.041 Radiographic dye allergy status; Z89.511 Acquired absence of right leg below knee; Z89.611 Acquired absence of right leg above knee; I25.2 Old myocardial infarction
CPT/HCPCS: 36415; 51702; 71045; 75635; 80048; 80053; 81001; 82962; 83735; 84443; 84484; 85025; 85379; 85610; 85730; 87040; 87081; 87086; 87088; 87186; 93005; 93926; 93971; 94761; 96372; 96374; 96375; J0696; J1335; J1815